=== PATIENT | female | born 1965 | race Caucasian/White ===

== ENCOUNTER 2025-07-15 06:36 | Day surgery (SDC) | payer BC, SELFPAY ==
[2025-07-01 09:33] LABS: INR 0.99; PT 13.4 Sec (11.4-14.6)
[2025-07-01 09:34] LABS: APTT 33.9 Sec (23.4-35.0)
[2025-07-01 09:38] LABS: Hematocrit 45.4 % (37.0-47.0); Hemoglobin 15.1 g/dL (12.0-16.0); Mean Corp Hgb Conc. 33.3 g/dL (33.0-37.0); Mean Corpuscular Volume 87.3 fL (81.0-99.0); Platelet Count 294 10^3/uL (130-400); Red Cell Dist. Width 13.3 % (11.5-14.5)
[2025-07-01 09:48] LABS: ALT (SGPT) 28 U/L (0-35); AST (SGOT) 26 U/L (14-36); Albumin 4.7 g/dl (3.5-5.0); Alkaline Phosphatase 76 U/L (38-126); Blood Urea Nitrogen 14 mg/dl (7-17); Calcium 9.6 mg/dl (8.4-10.2); Carbon Dioxide 30 mmol/L (22-30); Chloride 104 mmol/L (98-107); Glucose 96 mg/dl (70-99); Potassium 4.7 mmol/L (3.5-5.1); Sodium 138 mmol/L (135-145); Total Protein 7.6 g/dl (6.3-8.2); eGFR > 60.00
[2025-07-01 10:31] LABS: Glycohemoglobin (HgbA1c) 5.7 % (4.0-5.9)
[2025-07-01 11:24] LABS: CEA 2.55 ng/ml
[2025-07-01 14:04] VITALS: BMI 26.5
[2025-07-15] VITALS (10 sets, daily range): BP systolic 132–151; BP diastolic 76–96; BMI 26.5
[2025-07-15] MEDS: HEPARIN 5000 UNITS SC (12:54)
[2025-07-15] MEDS: TYLENOL 1000 MG PO (12:54)
[2025-07-15] MEDS: NORMOSOL-R/PLASMALYTE-A 1000 IV (12:55)
== END 2025-07-15 16:55 | disposition home or self-care (01) ==
LOC: SDS 06:36
PROVIDERS: ATTENDING PHYSICIAN Surgery; FAMILY PHYSICIAN Nurse Practitioner Family; OTHER PHYSICIAN Internal Medicine Cardiovascular Disease
DX: C18.1 Malignant neoplasm of appendix (principal); K42.9 Umbilical hernia without obstruction or gangrene
CPT/HCPCS: 49591; 80053; 82378; 83036; 85027; 85610; 85730; 86850; 86900; 86901; 88304; J1335